=== PATIENT | female | born 2000 | race African-American/Black ===

== ENCOUNTER 2022-12-20 10:10 | Outpatient (CLI) | payer OTHER, SELFPAY ==
[2022-12-20 20:00] LABS: Hepatitis B Surface Antigen Negative (Negative)
[2022-12-20 20:17] LABS: Hepatitis B Surface Anti Res Negative
== END 2022-12-20 10:11 | disposition home or self-care (01) ==
LOC: ANHGOSHLAB 10:13
PROVIDERS: PCP Family Medicine; Visit Provider Nurse Practitioner Family
DX: Z11.59 Encounter for screening for other viral diseases (principal); Z78.9 Other specified health status
CPT/HCPCS: 36415; 86706; 87340